=== PATIENT | male | born 1970 | race Hispanic/Latino ===

== ENCOUNTER 2018-07-30 03:02 | Inpatient (IN) | payer BC ==
[2018-07-30] VITALS (8 sets, daily range): BP systolic 120–135; BP diastolic 80–88
[~2018-07-30] VITALS: Ht 182.9 cm; Wt 133.6 kg
[~2018-07-30 03:02] MED LIST: MINOCYCLINE HCL50 MG PO
[2018-07-30] MEDS ORDERED: VANCOMYCIN 1GM/NS 250 ML 250 ML ONE (03:27)
[2018-07-30] MEDS ORDERED: PIPER-TAZ 3.375 GM 50 ML ONE (03:27)
[2018-07-30] MEDS: PIPER-TAZ 3.375 GM 50 ML IV SCH ×3 (03:50→22:16)
[2018-07-30] MEDS ORDERED: NO HOME MEDS (03:50)
[2018-07-30] MEDS: VANCOMYCIN 1GM/NS 250 ML 250 ML IV SCH ×2 (03:50→15:47)
[2018-07-30 03:55] LABS: BASOPHILS % 0.2 % (0.0-1.0); EOSINOPHILS # (AUTO) 0.1 (0.0-0.4); EOSINOPHILS % 1.6 % (0.0-6.0); HEMATOCRIT 41.2 % (38.2-49.6); HEMOGLOBIN 13.9 g/dL (14.0-18.0); LYMPHOCYTES # (AUTO) 1.2 (1.0-3.2); LYMPHOCYTES % 14.3 % (18.0-39.1); MEAN CORPUSCULAR HEMOGLOBIN 30.5 pg (28-32); MEAN CORPUSCULAR HGB CONC 33.7 g/dL (31-35); MEAN CORPUSCULAR VOLUME 90.4 fL (81-99); MONOCYTES # (AUTO) 0.5 (0.2-0.8); MONOCYTES % 6.4 % (4.4-11.3); NEUTROPHILS # (AUTO) 6.4 (2.1-6.9); NEUTROPHILS % 77.3 % (38.7-80.0); PLATELET COUNT 213 x10e3/uL (140-360); RED BLOOD COUNT 4.56 x10e6/uL (4.3-5.7); RED CELL DISTRIBUTION WIDTH 13.2 % (11.7-14.4)
[2018-07-30 04:13] LABS: ALANINE AMINOTRANSFERASE 40 IU/L (0-55); ALBUMIN 3.2 g/dL (3.5-5.0); ALBUMIN/GLOBULIN RATIO 0.9 (0.8-2.0); ALKALINE PHOSPHATASE 69 IU/L (40-150); ANION GAP 13.7 mmol/L (8-16); BLOOD UREA NITROGEN 14 mg/dL (7-26); BUN/CREATININE RATIO 17 (6-25); CALCIUM 8.5 mg/dL (8.4-10.2); CARBON DIOXIDE 22 mmol/L (22-29); CHLORIDE 105 mmol/L (98-107); CREATININE, SERUM 0.82 mg/dL (0.72-1.25); EST GLOMERULAR FILTRATION RATE > 60 ML/MIN (60-); GLUCOSE 136 mg/dL (74-118); POTASSIUM 3.7 mmol/L (3.5-5.1); SODIUM 137 mmol/L (136-145)
[2018-07-30] MEDS ORDERED: ONDANSETRON HCL INJ 2 MG/ML VIAL IV PRN (04:15)
[2018-07-30] MEDS ORDERED: MORPHINE SULFATE 2 MG/ML SYR IV PRN (04:15)
[2018-07-30] MEDS: SODIUM CHLORIDE 0.9% 1000ML 1,000 ML IV SCH ×2 (04:51→13:00)
--- NOTE | 2018-07-30 07:52 | History and Physical ---
This is a 48-year-old male with no medical history. He was in his usual state of health until he started with right lower extremity pain and swelling. The patient kept it elevated, but the pain and swelling got worse. The patient came to the emergency room and was found to have cellulitis of the right lower extremity and was admitted for the same. PAST MEDICAL HISTORY: Noncontributory except for morbid obesity. No hypertension. No diabetes mellitus. History of cellulitis. SURGICAL HISTORY: The patient had right knee meniscal surgery. SOCIAL HISTORY: No EtOH. No IV drug abuse. 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 MEDICATIONS: None. ALLERGIES: NONE. REVIEW OF SYSTEMS: Negative for chest pain or shortness of breath. No nausea, vomiting, diarrhea. No constipation. No rectal bleeding, hematochezia or hematemesis. No blurry vision. Positive for erythema and tenderness in the lower extremity. PHYSICAL EXAMINATION GENERAL: The patient is alert and oriented times 3. VITALS: The blood pressure is slightly elevated at 153/95. Heart rate 86. Satting 98%. HEENT: Normocephalic and atraumatic. The pupils react to light and accommodation. CV: S1 and S2 normal, regular rate and rhythm. ABDOMEN: Nontender and nondistended. EXTREMITIES: Right leg with a moderate amount of tenderness, erythema and swelling extending from the ankle all the way to the mid calf. Homans' sign is negative. NEUROLOGIC: Everything is normal. Alert and oriented times 3. No focal deficit. LABORATORY VALUES: White count 8.3, hemoglobin 13.9, hematocrit 41.2. Chemistries: Sodium 137, glucose 136. MICROBIOLOGY: Pending blood cultures. ASSESSMENT AND PLAN: Cellulitis of the lower extremities. The patient has been started on Zosyn and vancomycin. Will continue the same. Also, do a Doppler on the right lower extremity and check labs in the morning, also vancomycin trough. Further recommendations per clinical course. We will continue to monitor the patient in the hospital and will trend erythema and swelling of the lower extremity. Also do a Doppler. Further recommendations per clinical course. Job#: [id number]
[2018-07-30] MEDS: ACETAMINOPHEN 325 MG TAB PO PRN ×2 (11:46→20:00)
[2018-07-31] VITALS (7 sets, daily range): BP systolic 117–152; BP diastolic 73–97
[2018-07-31] MEDS: SODIUM CHLORIDE 0.9% 1000ML 1,000 ML IV SCH ×3 (01:18→12:21)
[2018-07-31] MEDS: VANCOMYCIN 1GM/NS 250 ML 250 ML IV SCH ×2 (03:30→15:27)
[2018-07-31 05:32] LABS: BASOPHILS % 0.3 % (0.0-1.0); EOSINOPHILS # (AUTO) 0.2 (0.0-0.4); EOSINOPHILS % 3.4 % (0.0-6.0); HEMATOCRIT 42.1 % (38.2-49.6); HEMOGLOBIN 13.8 g/dL (14.0-18.0); LYMPHOCYTES # (AUTO) 1.2 (1.0-3.2); LYMPHOCYTES % 19.5 % (18.0-39.1); MEAN CORPUSCULAR HGB CONC 32.8 g/dL (31-35); MEAN CORPUSCULAR VOLUME 91.5 fL (81-99); MONOCYTES # (AUTO) 0.6 (0.2-0.8); MONOCYTES % 8.9 % (4.4-11.3); NEUTROPHILS # (AUTO) 4.2 (2.1-6.9); NEUTROPHILS % 67.6 % (38.7-80.0); PLATELET COUNT 229 x10e3/uL (140-360); RED CELL DISTRIBUTION WIDTH 13.2 % (11.7-14.4)
[2018-07-31] MEDS: PIPER-TAZ 3.375 GM 50 ML IV SCH ×3 (05:56→23:07)
[2018-07-31 05:59] LABS: ALANINE AMINOTRANSFERASE 44 IU/L (0-55); ALBUMIN/GLOBULIN RATIO 0.8 (0.8-2.0); ALKALINE PHOSPHATASE 55 IU/L (40-150); BLOOD UREA NITROGEN 11 mg/dL (7-26); BUN/CREATININE RATIO 14 (6-25); CALCIUM 8.4 mg/dL (8.4-10.2); CARBON DIOXIDE 24 mmol/L (22-29); CHLORIDE 105 mmol/L (98-107); EST GLOMERULAR FILTRATION RATE > 60 ML/MIN (60-); GLUCOSE 126 mg/dL (74-118); SODIUM 136 mmol/L (136-145)
[2018-07-31] MEDS ORDERED: FUROSEMIDE 40 MG TAB PO NR (07:45)
[2018-07-31] MEDS ORDERED: MORPHINE SULFATE INJ 4 MG/ML INJ IV PRN (13:30)
[2018-07-31] MEDS ORDERED: SOD PHOSPHATE/SOD BIPHOSPHATE ENEMA 132 ML BTL PR PRN (15:30)
[2018-08-01] VITALS (9 sets, daily range): BP systolic 118–142; BP diastolic 78–88
[2018-08-01] MEDS: ACETAMINOPHEN 325 MG TAB PO PRN (00:05)
--- NOTE | 2018-08-01 01:39 | Consultation ---
DATE OF CONSULTATION: REASON FOR CONSULTATION: Cellulitis of the right lower extremity. HISTORY OF PRESENT ILLNESS: This patient who is very pleasant 48-year-old male who has history of cellulitis of his left lower extremity couple of years ago, comes in with redness and swelling of his right lower extremity. No specific trauma at the present time. It just happened. The patient came to the emergency room. He was started on IV antibiotic. The patient is telling me since he came here he is doing much better at the present time. The patient is currently lying in bed comfortably. He has no other complaints. PAST MEDICAL HISTORY: Otherwise he denies. PAST SURGICAL HISTORY: He denies. ALLERGIES: NKA. SOCIAL HISTORY: No smoking, drug abuse, or alcohol abuse. FAMILY HISTORY: Noncontributory. REVIEW OF SYSTEMS HEENT: There is no headache, visual changes, or hearing changes. GI: There is no nausea, no vomiting, no diarrhea, no abdominal pain. : There is no urgency, no frequency. SKIN: There is no rash except on lower extremity it is a little bit darker skin. There is discoloration. All other symptoms within normal limits. LABORATORY DATA: Sodium 136, 105, BUN 11, and creatinine 0.8. White count 6.9, hemoglobin 13.8. Patient was started on vancomycin and Zosyn. PHYSICAL EXAMINATION GENERAL: He is currently alert, oriented, does not seem to be in acute distress. VITALS: Stable. Currently afebrile. HEENT: He is not icteric. NECK: Supple. CHEST: Clear. HEART: S1 and S2. No murmur. ABDOMEN: Soft. Bowel sounds present. No tenderness. EXTREMITIES: On the right lower extremity, there is some erythema and edema. There is some brown discoloration of the skin. IMPRESSION: Cellulitis, right lower extremity, better intravenous antibiotic. I would recommend to continue the same. Probably change to oral antibiotic soon. We will follow with you. Further recommendations depending on the clinical progress. Job#: [id number]
[2018-08-01] MEDS: VANCOMYCIN 1GM/NS 250 ML 250 ML IV SCH (03:30)
[2018-08-01] MEDS: SODIUM CHLORIDE 0.9% 1000ML 1,000 ML IV SCH ×3 (04:13→13:32)
[2018-08-01] MEDS: PIPER-TAZ 3.375 GM 50 ML IV SCH ×3 (06:33→22:18)
[2018-08-01] MEDS: VANCOMYCIN HCL 1.5 GM in SODIUM CHLORIDE 0.9% 250ML 300 ML IV SCH (15:49)
[2018-08-02] VITALS (8 sets, daily range): BP systolic 113–128; BP diastolic 63–79
[2018-08-02] MEDS: VANCOMYCIN HCL 1.5 GM in SODIUM CHLORIDE 0.9% 250ML 300 ML IV SCH ×2 (04:15→16:40)
[2018-08-02] MEDS: SODIUM CHLORIDE 0.9% 1000ML 1,000 ML IV SCH (06:00)
[2018-08-02 06:18] LABS: BASOPHILS % 0.4 % (0.0-1.0); EOSINOPHILS # (AUTO) 0.3 (0.0-0.4); HEMATOCRIT 43.6 % (38.2-49.6); HEMOGLOBIN 14.5 g/dL (14.0-18.0); LYMPHOCYTES # (AUTO) 1.6 (1.0-3.2); LYMPHOCYTES % 17.2 % (18.0-39.1); MEAN CORPUSCULAR HEMOGLOBIN 30.1 pg (28-32); MEAN CORPUSCULAR HGB CONC 33.3 g/dL (31-35); MEAN CORPUSCULAR VOLUME 90.6 fL (81-99); MONOCYTES # (AUTO) 0.8 (0.2-0.8); MONOCYTES % 8.6 % (4.4-11.3); NEUTROPHILS # (AUTO) 6.7 (2.1-6.9); NEUTROPHILS % 70.2 % (38.7-80.0); PLATELET COUNT 291 x10e3/uL (140-360); RED BLOOD COUNT 4.81 x10e6/uL (4.3-5.7); RED CELL DISTRIBUTION WIDTH 12.9 % (11.7-14.4)
[2018-08-02] MEDS: PIPER-TAZ 3.375 GM 50 ML IV SCH ×3 (06:21→22:00)
[2018-08-02 06:34] LABS: ANION GAP 13.2 mmol/L (8-16); BLOOD UREA NITROGEN 13 mg/dL (7-26); BUN/CREATININE RATIO 16 (6-25); CALCIUM 9.1 mg/dL (8.4-10.2); CARBON DIOXIDE 24 mmol/L (22-29); CHLORIDE 105 mmol/L (98-107); CREATININE, SERUM 0.82 mg/dL (0.72-1.25); EST GLOMERULAR FILTRATION RATE > 60 ML/MIN (60-); GLUCOSE 120 mg/dL (74-118); POTASSIUM 4.2 mmol/L (3.5-5.1); SODIUM 138 mmol/L (136-145)
[2018-08-02] MEDS ORDERED: HALOPERIDOL LACTATE 5 MG/ML VIAL ONE (16:30)
[2018-08-03] VITALS (7 sets, daily range): BP systolic 118–149; BP diastolic 62–89
[2018-08-03] MEDS: SODIUM CHLORIDE 0.9% 1000ML 1,000 ML IV SCH ×2 (01:53→10:46)
[2018-08-03] MEDS: VANCOMYCIN HCL 1.5 GM in SODIUM CHLORIDE 0.9% 250ML 300 ML IV SCH ×2 (03:30→15:30)
[2018-08-03] MEDS: PIPER-TAZ 3.375 GM 50 ML IV SCH ×3 (05:43→21:38)
[2018-08-03] MEDS: NYSTATIN SUSPENSION 5 ML UDC PO SCH ×3 (12:22→23:26)
[2018-08-04] VITALS: BP 140/77
[2018-08-04] MEDS: VANCOMYCIN HCL 1.5 GM in SODIUM CHLORIDE 0.9% 250ML 300 ML IV SCH (03:30)
[2018-08-04 04:00] VITALS: BP 140/75
[2018-08-04] MEDS: PIPER-TAZ 3.375 GM 50 ML IV SCH (05:59)
[2018-08-04] MEDS: NYSTATIN SUSPENSION 5 ML UDC PO SCH (05:59)
[2018-08-04 07:10] VITALS: BP 119/77
[2018-08-04 08:06] VITALS: BP 119/62
[2018-08-04 08:07] VITALS: BP 119/77
[2018-08-04] MEDS ORDERED: DOXYCYCLINE HY100 MG PO (11:00)
[2018-08-04] MEDS ORDERED: CIPRO500 MG PO (11:00)
[2018-08-04 11:37] VITALS: BP 135/85
== END 2018-08-04 11:16 | disposition home or self-care (01) | DRG 603 ==
LOC: ER 03:02 → ERHOLD 04:32 → MED/SURG3 05:27
PROVIDERS: ADMIT Family Medicine; ATTEND Family Medicine
DX: L03.116 Cellulitis of left lower limb (principal); L03.115 Cellulitis of right lower limb; I87.2 Venous insufficiency (chronic) (peripheral); E66.9 Obesity, unspecified; Z68.39 Body mass index [BMI] 39.0-39.9, adult
CPT/HCPCS: 36415; 80048; 80053; 80202; 83036; 85025; 87040; 93971; 96361; 96367; 99284; J1630; J2543; J3370; J7030; J7050

== ENCOUNTER 2024-07-22 07:10 | Inpatient (IN) | payer BC ==
[~2024-07-22] VITALS: Ht 365.8 cm; Wt 133.4 kg
[~2024-07-22 07:10] MED LIST changes: +CIPRO500 MG PO; +DOXYCYCLINE HY100 MG PO; +NO HOME MEDS
[2024-07-22 07:14] VITALS: PULSE 77; RESP 16; TEMP 98.4
[2024-07-22 07:40] LABS: BASOPHILS % 0.2 % (0.0-1.0); EOSINOPHILS # (AUTO) 0.1 (0.0-0.4); EOSINOPHILS % 0.7 % (0.0-6.0); HEMATOCRIT 45.3 % (38.2-49.6); HEMOGLOBIN 14.9 g/dL (14.0-18.0); LYMPHOCYTES # (AUTO) 1.6 (1.0-3.2); LYMPHOCYTES % 12.4 % (18.0-39.1); MEAN CORPUSCULAR HEMOGLOBIN 30.4 pg (28-32); MEAN CORPUSCULAR HGB CONC 32.9 g/dL (31-35); MEAN CORPUSCULAR VOLUME 92.4 fL (81-99); MONOCYTES # (AUTO) 0.7 (0.2-0.8); MONOCYTES % 5.8 % (4.4-11.3); NEUTROPHILS # (AUTO) 10.2 (2.1-6.9); NEUTROPHILS % 80.5 % (38.7-80.0); PLATELET COUNT 223 x10e3/uL (140-360); RED CELL DISTRIBUTION WIDTH 13.4 % (11.7-14.4); WHITE BLOOD COUNT 12.63 x10e3/uL (4.8-10.8)
[2024-07-22] MEDS ORDERED: PIPERACILLIN/TAZOBACTAM 3.375 GM VIAL ONE (07:41)
[2024-07-22] MEDS: SODIUM CHLORIDE 0.9% 1000ML 1,000 ML IV STA (07:41)
[2024-07-22 07:59] LABS: PROTHROMBIN TIME 13.7 seconds (11.9-14.5)
[2024-07-22] MEDS ORDERED: HYDROCODONE/APAP 5MG-325MG TAB PO PRN (08:00)
[2024-07-22] MEDS ORDERED: ONDANSETRON HCL INJ 2MG/ML 2ML 2 MG/ML VIAL IV PRN (08:00)
[2024-07-22 08:07] LABS: ALBUMIN 3.4 g/dL (3.5-5.0); ALBUMIN/GLOBULIN RATIO 0.9 (0.8-2.0); ANION GAP 13.7 mmol/L (8-16); BILIRUBIN,TOTAL 0.6 mg/dL (0.2-1.2); CALCIUM 8.8 mg/dL (8.4-10.2); CREATININE, SERUM 0.84 mg/dL (0.72-1.25); POTASSIUM 3.7 mmol/L (3.5-5.1); TOTAL PROTEIN 7.1 g/dL (6.5-8.1)
[2024-07-22] MEDS: VANCOMYCIN 1.5 GM/300 ML (PEG) 300 ML IV ONE (08:11)
[2024-07-22] MEDS: SODIUM CHLORIDE 0.9% 1000ML 1,000 ML IV SCH (08:12)
[2024-07-22 14:12] VITALS: PULSE 68; RESP 18; O2SAT 99
[2024-07-22] MEDS ORDERED: MOUNJARO7.5 MG/0.5 (14:38)
[2024-07-22] MEDS: ACETAMINOPHEN 325 MG TAB PO PRN (15:00)
[2024-07-22 16:12] VITALS: BP 111/65; PULSE 80; RESP 18; TEMP 98.5; O2SAT 99
[2024-07-22 20:00] VITALS: BP 145/86; PULSE 83; RESP 18; TEMP 98.6; O2SAT 99
[2024-07-22 20:15] VITALS: BP 145/86; PULSE 83; RESP 18; TEMP 98.6; O2SAT 99
[2024-07-22] MEDS: VANCOMYCIN 1.5 GM/300 ML (PEG) 300 ML IV SCH (20:56)
[2024-07-22] MEDS ORDERED: ROSUVASTATIN CA10 MG PO (21:07)
[2024-07-22] MEDS ORDERED: DEXTROSE 50% SYRINGE 50 ML IV PRN (21:15)
[2024-07-22] MEDS: ENOXAPARIN SOD INJ 40 MG/0.4 ML SYR SC STA (21:29)
[2024-07-23] VITALS (8 sets, daily range): BP systolic 109–125; BP diastolic 65–82; PULSE 69–84; RESP 17–20; TEMP 97.6–98.7; O2SAT 97–100
[2024-07-23 05:21] LABS: BASOPHILS % 0.3 % (0.0-1.0); EOSINOPHILS # (AUTO) 0.2 (0.0-0.4); EOSINOPHILS % 2.5 % (0.0-6.0); HEMOGLOBIN 13.2 g/dL (14.0-18.0); LYMPHOCYTES # (AUTO) 1.2 (1.0-3.2); LYMPHOCYTES % 14.6 % (18.0-39.1); MEAN CORPUSCULAR HEMOGLOBIN 29.9 pg (28-32); MEAN CORPUSCULAR HGB CONC 31.4 g/dL (31-35); MONOCYTES # (AUTO) 0.7 (0.2-0.8); MONOCYTES % 8.9 % (4.4-11.3); NEUTROPHILS # (AUTO) 5.8 (2.1-6.9); NEUTROPHILS % 73.4 % (38.7-80.0); PLATELET COUNT 226 x10e3/uL (140-360); RED BLOOD COUNT 4.42 x10e6/uL (4.3-5.7); RED CELL DISTRIBUTION WIDTH 13.5 % (11.7-14.4); WHITE BLOOD COUNT 7.86 x10e3/uL (4.8-10.8)
[2024-07-23 06:09] LABS: ALBUMIN/GLOBULIN RATIO 0.9 (0.8-2.0); ANION GAP 8.6 mmol/L (8-16); BILIRUBIN,TOTAL 0.5 mg/dL (0.2-1.2); CALCIUM 8.7 mg/dL (8.4-10.2); CREATININE, SERUM 0.82 mg/dL (0.72-1.25); POTASSIUM 3.6 mmol/L (3.5-5.1); TOTAL PROTEIN 6.5 g/dL (6.5-8.1)
[2024-07-23] MEDS: INSULIN LISPRO 100 UNIT/1 ML 3ML VIAL SQ SCH (07:30)
[2024-07-23] MEDS: CRESTOR 10MG PO SCH (07:49)
[2024-07-23] MEDS ORDERED: ONDANSETRON HCL 4 MG ORAL DISINTEGRATING TAB PO PRN (13:00)
[2024-07-23] MEDS: ENOXAPARIN SOD INJ 40 MG/0.4 ML SYR SC SCH (16:48)
[2024-07-24] VITALS (8 sets, daily range): BP systolic 115–128; BP diastolic 78–87; PULSE 67–73; RESP 18–20; TEMP 97.7–98.3; O2SAT 97–100
[2024-07-24] MEDS: DIPHENHYDRAMINE HCL 25 MG CAP PO PRN (18:09)
[2024-07-25 03:47] VITALS: BP 124/81; PULSE 68; RESP 18; TEMP 97; O2SAT 100
[2024-07-25 06:06] LABS: BASOPHILS % 0.1 % (0.0-1.0); EOSINOPHILS # (AUTO) 0.3 (0.0-0.4); EOSINOPHILS % 3.8 % (0.0-6.0); HEMATOCRIT 43.4 % (38.2-49.6); HEMOGLOBIN 13.9 g/dL (14.0-18.0); LYMPHOCYTES % 21.9 % (18.0-39.1); MEAN CORPUSCULAR VOLUME 93.5 fL (81-99); MONOCYTES # (AUTO) 0.7 (0.2-0.8); NEUTROPHILS # (AUTO) 5.9 (2.1-6.9); NEUTROPHILS % 65.8 % (38.7-80.0); PLATELET COUNT 278 x10e3/uL (140-360); RED BLOOD COUNT 4.64 x10e6/uL (4.3-5.7); RED CELL DISTRIBUTION WIDTH 13.3 % (11.7-14.4); WHITE BLOOD COUNT 8.91 x10e3/uL (4.8-10.8)
[2024-07-25 06:33] LABS: ANION GAP 11.7 mmol/L (8-16); CREATININE, SERUM 0.88 mg/dL (0.72-1.25); POTASSIUM 3.7 mmol/L (3.5-5.1)
[2024-07-25 08:00] VITALS: BP 123/79; PULSE 70; RESP 16; TEMP 97.6; O2SAT 100
[2024-07-25 11:38] VITALS: BP 123/79; PULSE 70; RESP 16; TEMP 97.6; O2SAT 100
[2024-07-25 12:00] VITALS: BP 111/84; PULSE 69; RESP 19; TEMP 97.8; O2SAT 99
[2024-07-25 16:27] VITALS: BP 120/82; PULSE 75; RESP 20; TEMP 97.8; O2SAT 100
== END 2024-07-25 19:47 | disposition home or self-care (01) | DRG 603 ==
LOC: ER 07:15 → ERHOLD 07:59 → MED/SURG2 13:34
PROVIDERS: ADMIT Family Medicine; ATTEND Family Medicine
DX: L03.115 Cellulitis of right lower limb (principal); E11.9 Type 2 diabetes mellitus without complications; I10 Essential (primary) hypertension; I87.2 Venous insufficiency (chronic) (peripheral); E78.5 Hyperlipidemia, unspecified; R21 Rash and other nonspecific skin eruption; E66.01 Morbid (severe) obesity due to excess calories; Z68.39 Body mass index [BMI] 39.0-39.9, adult; Z79.85 Long-term (current) use of injectable non-insulin antidiabetic drugs; Z83.3 Family history of diabetes mellitus; Z82.49 Family history of ischemic heart disease and other diseases of the circulatory system
CPT/HCPCS: 36415; 80048; 80053; 80202; 82948; 83735; 85025; 85610; 85730; 87040; 93971; 99252; 99284; J1650; J2543; J7030